=== PATIENT | female | born 1985 | race Two or more races ===

== ENCOUNTER 2025-04-17 16:50 | Emergency (ER) | payer MEDICAID, OTHER ==
[~2025-04-17] VITALS: Ht 154.9 cm; Wt 100.0 kg
--- NOTE | 2025-04-17 17:18 | ECG ---
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
--- NOTE | 2025-04-17 17:27 | ED.PDOC ---
History of Present Illness HPI Comments 39-year-old female who comes in with chief complaint of palpitations starting at 1:20 a.m. this afternoon. The patient was at a store about to take her daughter to the dentist and then she started with some palpitations. The patient states that she typically will get some palpitations but this time it lasted longer than usual. The patient denies any nausea, vomiting or diarrhea. The patient is approximately seven weeks . When EMS arrived, the patient had a rhythm strip good red atrial fibrillation with rapid response. She was given some normal saline IV and the patient's heart rate came down less than 100. The patient is complaining of some dizziness as well as some palpitations. Chief Complaint: Palpitations Time Seen by MD: 17:12 Reviewed Notes: Nurses Notes, Seam Finisher Notes, Medications, Allergies (No allergies to medications) Allergies: Coded Allergies: NO KNOWN ALLERGIES (Unverified , 04/17/25) Information Source: Emergency Med Personnel Mode of Arrival: EMS Severity: Moderate Duration: Since onset Prehospital treatment: IVF, Other (Normal saline bolus) Associated signs and symptoms The patient was having palpitations and dizziness Past Medical History PAST MEDICAL HISTORY: Denies Surgical History (Other): D&C CADD OPERATOR History: No Pertinent CADD OPERATOR History Family History Family History: Family hx of Cancer, Family hx of lung pepito Social History Smoker: Other (VAPE) Alcohol: Denies ETOH Use Drugs: Denies Drug Use Lives In: Home Constitutional: denies: chills, diaphoresis, fatigue, fever, malaise, sweats, weakness, others EENTM: denies: blurred vision, double vision, ear bleeding, ear discharge, ear drainage, ear pain, ear ringing, eye pain, eye redness, hearing loss, mouth pain, mouth swelling, nasal discharge, nose bleeding, nose congestion, nose pain, photophobia, tearing, throat pain, throat swelling, voice changes, others Respiratory: denies: cough, hemoptysis, orthopnea, SOB at rest, shortness of breath, SOB with excertion, stridor, wheezing, others Cardiovascular: reports: irregular heart beat, palpitations; denies: chest pain, dizzy spells, diaphoresis, Dyspnea on exertion, edema, left arm pain, lightheadedness, PND, syncope, others Gastrointestinal: denies: abdomen distended, abdominal pain, blood streaked bowels, constipated, diarrhea, dysphagia, difficulty swallowing, hematemesis, melena, nausea, poor appetite, poor fluid intake, rectal bleeding, rectal pain, vomiting, others Genitourinary: denies: abnormal vagina bleeding, burning, dyspareunia, dysuria, flank pain, frequency, hematuria, incontinence, pain, , vagina discharge, urgency, others Neurological: reports: dizziness; denies: fainting, headache, left sided numbness, left sided weakness, numbness, paresthesia, pre-existing deficit, right sided numbness, right sided weakness, seizure, speech problems, tingling, tremors, weakness, others Musculoskeletal: denies: back pain, gout, joint pain, joint swelling, muscle pain, muscle stiffness, neck pain, others Integumetry: denies: bruises, change in color, change in hair/nails, dryness, laceration, lesions, lumps, rash, wounds, others Allergic/Immunocompromised: denies: Difficulty Healing, Frequent Infections, Hives, Itching, others Hematologic/Lymphatic: denies: anemia, blood clots, easy bleeding, easy bruising, swollen glands, others Endocrine: denies: excessive hunger, excessive sweating, excessive thirst, excessive urination, flushing, intolerance to cold, intolerance to heat, unexplained weight gain, unexplained weight loss, others Psychiatric: denies: anxiety, bipolar disorder, depression, hopeless, panic disorder, schizophrenia, sleepless, suicidal, others Physical Exam General Appearance: Moderate Distress HEENT: Normal ENT Inspection, Pharynx Normal, TMs Normal Neck: Full Range of Motion, Non-Tender, Normal, Normal Inspection Respiratory: Chest Non-Tender, Lungs Clear, No Accessory Muscle Use, No Respiratory Distress, Normal Breath Sounds Cardiovascular: Irregular, No Edema, No JVD, No Murmur, No Gallop Breast Exam: Deferred Gastrointestinal: No Organomegaly, Non Tender, No Pulsatile Mass, Normal Bowel Sounds, Soft Genitalia: Deferred Pelvic: Deferred Rectal: Deferred Extremities: No calf tenderness, Normal capillary refill, Normal inspection, No rmal range of motion, Non-tender, No pedal edema Musculoskeletal : Apperance: Normal Neurologic: Alert, communication equipment mechanic II-XII nml as Tested, No Motor Deficits, Normal Affect, Normal Mood, No Sensory Deficits Cerebellar Function: Normal Reflexes: Normal Skin: Dry, Normal Color, Warm Lymphatic: No Adenopathy Was a procedure done? Was a procedure done?: No EKG EKG : Pulse Rate (adult): 98 [place]: Normal Cardiac Rhythm: Afib Differential Dx Considerations may include: Atrial fibrillation with rapid response, electrolyte imbalance, , dehydration X-Ray, Labs, Meds, VS Vital Signs Date Time Temp Pulse Resp B/P (MAP) Pulse Ox O2 Delivery O2 Flow Rate FiO2 04/17/25 17:27 98 04/17/25 17:11 97.9 98 20 118/89 100 97.9 04/17/25 17:09 98 Lab Test 04/17/25 17:29 Range/Units White Blood Count Pending Red Blood Count Pending Hemoglobin Pending Hematocrit Pending Mean Corpuscular Volume Pending Mean Corpuscular Hemoglobin Pending Mean Corpuscular Hemoglobin Concent Pending Red Cell Distribution Width Pending Platelet Count Pending Mean Platelet Volume Pending Neutrophils (%) (Auto) Pending Lymphocytes (%) (Auto) Pending Monocytes (%) (Auto) Pending Basophils (%) (Auto) Pending Neutrophils # (Auto) Pending Lymphocytes # (Auto) Pending Monocytes # (Auto) Pending Sodium Level Pending Potassium Level Pending Chloride Level Pending Carbon Dioxide Level Pending Anion Gap Pending Blood Urea Nitrogen Pending Creatinine Pending Glomerular Filtration Rate Calc Pending BUN/Creatinine Ratio Pending Serum Glucose Pending Calcium Level Pending Magnesium Level Pending Troponin I High Sensitivity Pending IV Hep-Lock was established The patient was given normal saline at 500 cc bolus The patient will be signed out to Dr. Curry Images Reviewed?: Images reviewed and evaluated by me Time of 1ST Reevaluation: 17:26 Reevaluation 1ST: Unchanged Patient Education/Counseling: Diagnosis, Treatment, Prognosis Family Education/Counseling: No Family Present SEPSIS Sepsis Screen Date sepsis recognized/suspect: Apr 17, 2025 Time Sepsis recognized/suspect: 1700 Recent Procedure: No On Antibiotic Therapy: No Respiratory Rate >20: No Heart Rate >90: Yes Temp<36 C (96.8 F) or >38.3 C: No SBP <90 or MAP <65 mmHG: No New Acute Mental Status Change: No Is the patient on CPAP, BIPAP,: No Physician Orders Troponin-I Hs (04/17/25 17:13) Complete Blood Count (04/17/25 17:13) Urinalysis (04/17/25 17:13) Basic Metabolic Panel (04/17/25 17:13) [place] Iv (04/17/25 17:13) Assistant Speech Language Pathologist (04/17/25 17:13) Blood Pressure (04/17/25 17:13) Pulse Oximetry (04/17/25 17:13) Magnesium (04/17/25 17:13) Ob Ultrasound Comp Less 14wks (04/17/25 17:13) Sodium Chloride 0.9% (04/17/25 17:15) Vital Signs Date Time Temp Pulse Resp B/P (MAP) Pulse Ox O2 Delivery O2 Flow Rate FiO2 04/17/25 17:27 98 04/17/25 17:11 97.9 98 20 118/89 100 97.9 04/17/25 17:09 98 Laboratory Tests Test 04/17/25 17:29 White Blood Count Pending Departure 1 Departure Time of Disposition: 17:50 Impression: Primary Impression: Atrial fibrillation Qualified Codes: I48.91 - Unspecified atrial fibrillation Additional Impression: Qualified Codes: Z34.90 - Encounter for supervision of normal , unspecified, unspecified trimester Disposition: 30 STILL A PATIENT Condition: Fair Critical Care Note Critical Care Time?: Yes (35 min-critical care time only) Stability Stability form required: No Heart Score Heart Score: Heart Score Response (Comments) Value History Moderate Suspicious 1 EKG Repolarization Disturb 1 Age <45 0 Risk Factors 1 or 2 risk factors 1 Troponin N/A 0 Total 3 ISH HUDSON MD Apr 17, 2025 17:27
[2025-04-17 17:51] LABS: Hematocrit 36.2 % (36.0-46.0); Hemoglobin 11.9 g/dL (12.2-16.2); Mean Corpuscular Hemoglobin 27.4 pg (28.0-32.0); Mean Corpuscular Volume 83.1 fL (80.0-100.0); Nucleated Red Blood Cells % 0.1 %
[2025-04-17 18:04] LABS: Chloride 106 mmol/L (98-107); Potassium 3.7 mmol/L (3.5-5.1); Sodium 140 mmol/L (136-145)
[2025-04-17 18:05] LABS: Anion Gap 11 (5-15); Carbon Dioxide 23 mmol/L (20-31)
[2025-04-17 18:06] LABS: Calcium 9.4 mg/dL (8.7-10.4)
[2025-04-17 18:10] LABS: BUN/Creatinine Ratio 11.1 (10.0-20.0); Glucose 85 mg/dL (74-106)
[2025-04-17 18:11] LABS: Magnesium 1.9 mg/dL (1.6-2.6)
[2025-04-17 18:42] LABS: Blood Urea Nitrogen 9 mg/dL (9-23)
--- NOTE | 2025-04-17 19:33 | DVH ---
INDICATION: Palpitations TECHNIQUE: Multiple real-time grayscale transabdominal sonographic images along with color and duplex Doppler of the uterus and ovaries were obtained. COMPARISON: None FINDINGS: The uterus measures 13 x 6.9 x 7.5 cm. The endometrial stripe gestational sac noted in the endometrial canal The right ovary measures 4.4 x 2.2 x 3.1 cm. Volume of the right ovary is 16.2 mL. There is a 2.5 x 2.1 x 1.8 cm anechoic nodule in the right ovary consistent with a follicular cyst. The left ovary measures 4.9 x 3 x 3.4 cm. Left ovarian volume is 27 mL. There is an anechoic nodule in the left ovary measuring 2.2 x 2.2 x 2.0 cm consistent with a follicle. Subsequent color and duplex Doppler interrogation of the ovaries demonstrated symmetric vascular flow to both ovaries, though this does not exclude the possibility of torsion due to the dual blood supply. There is a gestational sac within the endometrial canal measuring 2.52 cm consistent with 7 weeks 2 days. pole measured 0.93 cm consistent with 7 weeks 0 days. Gestational age is 7 weeks 1 day GABBY 12/03/2025. heart rate 138 beats per minute IMPRESSION: 1. 7 week 1 day IUP. GABBY 12/03/2025 2. FHR: 138 beats per minute 3. Follicles in the right and left ovary.
[2025-04-17] MEDS: SODIUM CHLORIDE 0.9% 500 ML IV ONE (19:39)
--- NOTE | 2025-04-17 20:50 | ED.PDOC ---
Departure 1 Departure Time of Disposition: 21:28 Impression: Primary Impression: Atrial fibrillation Qualified Codes: I48.91 - Unspecified atrial fibrillation Additional Impressions: Qualified Codes: Z34.90 - Encounter for supervision of normal , unspecified, unspecified trimester Advanced maternal age (AMA), 40 years or greater High-risk Disposition: 07 LEFT AWOL/ELOPED Condition: Fair Comments Sign out received from Dr. Serrano 39-year-old female 7 weeks with atrial fibrillation, currently rate controlled. @20:[address] Villasenor Cardiology. Recommendation is transfer for high level of care. Patient will need long-term management of anticoagulation during . @20:[address] Luna Obstetrics. Recommendation is transfer for higher level of care for high risk with arrhythmia, advanced maternal age @21:[address] Hagan at [place] [facility] who accepts patient for transfer. Despite our efforts, patient has decided to leave against medical advice. The patient has a normal mental status and full decisional capacity. Patient has been informed of the benefits of staying such as further diagnosis and treatment of possible serious etiology of the symptoms, and the risks of leaving such as , chronic pain, permanent disability or other serious adverse events which might be attributed to leaving. Discussed with the patient findings of Atrial fibrillation during , need for higher level of care for further management. The patient displays clear understanding of these benefits and risks and chooses to leave. The patient is been informed also that they may return here at any time if they change their mind or need to further concerns or questions has been referred to their local medical physician for follow up NURY. NICOLASA ESTEBAN MD Apr 17, 2025 20:50
[2025-04-17 21:26] VITALS: BP 124/85; PULSE 108; RESP 20; TEMP 97.8; O2SAT 100
== END 2025-04-17 21:31 | disposition left against medical advice (07) ==
LOC: EDBD 16:50 → ER 16:50
DX: O99.411 Diseases of the circulatory system complicating pregnancy, first trimester (principal); I48.91 Unspecified atrial fibrillation; O09.91 Supervision of high risk pregnancy, unspecified, first trimester; O99.331 Smoking (tobacco) complicating pregnancy, first trimester; F17.290 Nicotine dependence, other tobacco product, uncomplicated; Z79.899 Other long term (current) drug therapy; Z3A.01 Less than 8 weeks gestation of pregnancy
CPT/HCPCS: 36415; 76801; 80048; 83735; 84484; 85025; 93005; 99291